=== PATIENT | male | born 1955 | race Caucasian/White ===

== ENCOUNTER 2021-08-27 09:46 | Inpatient (IN) | payer MEDICARE, OTHER ==
[~2021-08-27] VITALS: Ht 182.9 cm; Wt 90.7 kg
[2021-08-27] MEDS ORDERED: SUBOXONE (10:11)
[2021-08-27] MEDS ORDERED: ONDANSETRON 4 MG/2 ML VIAL IV ONE (10:30)
[2021-08-27] MEDS ORDERED: BENZONATATE 100 MG CAPSULE PO ONE (10:30)
[2021-08-27] MEDS ORDERED: MORPHINE SULFATE 2 MG/1 ML DISP.SYRIN IV ONE (10:30)
[2021-08-27 10:40] LABS: HEMATOCRIT 38.7 % (36.7-47.1); MEAN CORPUSCULAR HEMOGLOBIN 30.4 uug (23.8-33.4); PLATELET COUNT (AUTO) 207 K/uL (152-348)
[2021-08-27 10:45] LABS: CREATININE 1.5 mg/dL (0.6-1.3); POTASSIUM 3.5 mmol/L (3.5-5.1)
[2021-08-27] MEDS ORDERED: ONDANSETRON 4 MG/2 ML VIAL ONE (10:49)
[2021-08-27] MEDS ORDERED: BENZONATATE 100 MG CAPSULE ONE (10:49)
[2021-08-27] MEDS ORDERED: MORPHINE SULFATE 2 MG/1 ML DISP.SYRIN ONE (10:49)
[2021-08-27 10:59] LABS: BILIRUBIN,TOTAL 2.2 mg/dL (0.2-1.0); TOTAL PROTEIN, SERUM 7.8 g/dL (6.4-8.2)
--- NOTE | 2021-08-27 10:59 | NUR ---
PT IS IN ROOM #1B. DR COATES EVALUTED THE PT.
[2021-08-27] MEDS ORDERED: CEFTRIAXONE 1 G in IV DEXTROSE 5% 50 ML IV ONE (11:30)
[2021-08-27] MEDS ORDERED: AZITHROMYCIN IV 500 MG in IV DEXTROSE 5% 250 ML IV ONE (11:30)
[2021-08-27] MEDS ORDERED: IOHEXOL 350 100 ML INFUS..BTL ONE ×2 (11:51→11:52)
[2021-08-27] MEDS ORDERED: SWABABLE VALVE TRANSFER SET EA MC ONE (11:52)
[2021-08-27] MEDS ORDERED: CEFTRIAXONE /D5W 50ML IVPB **ER PYXIS IV ONE ×2 (11:57→20:38)
[2021-08-27] MEDS ORDERED: AZITHROMYCIN 500MG/ D5W 250ML IVPB **ER PYXIS ONLY IV ONE (11:58)
[2021-08-27] MEDS ORDERED: DEXAMETHASONE SOD PHOSPHATE 4 MG INJ IV ONE (14:00)
[2021-08-27] MEDS ORDERED: ENOXAPARIN SODIUM 40 MG/0.4 ML DISP.SYRIN SQ ONE ×2 (14:00→14:19)
[2021-08-27] MEDS ORDERED: PANTOPRAZOLE SODIUM 40 MG VIAL IV ONE (14:00)
[2021-08-27] MEDS ORDERED: DEXAMETHASONE SOD PHOSPHATE 10 MG INJ ONE (14:18)
[2021-08-27] MEDS ORDERED: PANTOPRAZOLE SODIUM 40 MG VIAL ONE (14:19)
[2021-08-27] MEDS ORDERED: BUPRENORPHINE HCL 2 MG TAB.SUBL SL ONE (18:00)
[2021-08-27] MEDS ORDERED: MAGNESIUM HYDROXIDE 30 ML LIQUID UDC PO PRN (18:45)
[2021-08-27] MEDS ORDERED: CEFTRIAXONE 1 G in IV DEXTROSE 5% 50 ML IV SCH ×2 (18:45→23:48)
[2021-08-27] MEDS ORDERED: ONDANSETRON 4 MG/2 ML VIAL IV PRN (18:45)
[2021-08-27] MEDS ORDERED: ACETAMINOPHEN 325 MG TABLET PO PRN (18:45)
[2021-08-27] MEDS ORDERED: HYDROCODONE/APAP 5-325MG TABLET PO PRN (18:45)
[2021-08-27] MEDS ORDERED: DOCUSATE SODIUM 250 MG CAPSULE PO SCH (21:00)
--- NOTE | 2021-08-27 21:14 | NUR ---
pt a/o denies sob or c/p pt is aware is is admitted to the hospital.
--- NOTE | 2021-08-27 23:04 | NUR ---
pt is moved to room 2a in er. attempted to give report to sandrine on 3rd floor, nurse is unavailable.
--- NOTE | 2021-08-27 23:44 | NUR ---
NOw told by Neelima GOMEZ that pt will go to room 322.
[2021-08-27] MEDS ORDERED: ALBUTEROL SULFATE 2.5 MG/3 ML NEBU NEB PRN (23:45)
--- NOTE | 2021-08-27 23:56 | NUR ---
pt transported to room 322 with all belongings Mercedes at bedside to receive pt.
[2021-08-28 00:18] VITALS: BP 114/62
--- NOTE | 2021-08-28 01:23 | NUR ---
Admitted pt to Tele with dx of CAP via frank accompanied by ER nurse Ameya. He is alert and oriented x4, able to make needs known, ambulatory and continent to B&B. He is on O2 at 3 LPM via NC saturating at 96%. IV line on RAC patent and intact. Admission process observed, belongings list filled up, and full body assessment done. Skin is intact. All needs attended. Call light placed within reach. Will continue to monitor.
[2021-08-28 04:35] VITALS: BP 101/47
[2021-08-28] MEDS: PANTOPRAZOLE SODIUM 40 MG TABLET.DR PO SCH (06:06)
--- NOTE | 2021-08-28 06:40 | NUR ---
Pt slept intermittently throughout the night. On O2 at 3 LPM via NC. Sinus bradycardia on tele. Due medication given on time and tolerated well. Urinal at bedside. All needs attended. Call light placed within reach. Frequent visual checks done. Will endorse to next shift.
[2021-08-28 07:53] LABS: HEMATOCRIT 35.4 % (36.7-47.1); MEAN CORPUSCULAR HEMOGLOBIN 30.1 uug (23.8-33.4); MEAN CORPUSCULAR VOLUME 88.3 fL (73.0-96.2); PLATELET COUNT (AUTO) 198 K/uL (152-348)
[2021-08-28 08:00] LABS: BILIRUBIN,TOTAL 0.8 mg/dL (0.2-1.0); CREATININE 1.1 mg/dL (0.6-1.3); MAGNESIUM 2.6 mg/dL (1.8-2.4); PHOSPHOROUS 3.1 mg/dL (2.5-4.9); POTASSIUM 4.1 mmol/L (3.5-5.1)
[2021-08-28 08:08] LABS: THYROID STIMULATING HORMONE 0.111 mIU/mL (0.358-3.740)
--- NOTE | 2021-08-28 08:54 | NUR ---
Pt Receive PT AAOX4 . On O2 at 3 LPM via NC. Sinus bradycardia on tele. Due medication given on time and tolerated well. Urinal at bedside. All needs attended. Call light placed within reach. Frequent visual checks done.PT requesting to speak to the DR he is asking for a medicine suboxone 8 mg will let the DR know
[2021-08-28] MEDS ORDERED: AZITHROMYCIN IV 250 MG in IV DEXTROSE 5% 250 ML IV SCH (09:00)
[2021-08-28] MEDS: ENOXAPARIN SODIUM 40 MG/0.4 ML DISP.SYRIN SQ SCH (10:52)
[2021-08-28] MEDS ORDERED: CEFTRIAXONE 1 G in IV DEXTROSE 5% 50 ML IV SCH (12:00)
[2021-08-28] MEDS: AZITHROMYCIN IV 500 MG in IV DEXTROSE 5% 250 ML IV SCH (12:28)
[2021-08-28] MEDS: ALBUTEROL SULFATE 2.5 MG/3 ML NEBU NEB SCH ×2 (16:09→21:31)
[2021-08-28] MEDS ORDERED: BUPR1FIL3 SL (16:36)
--- NOTE | 2021-08-28 16:45 | NUR ---
PT continue to request for the medicine Suboxone 8 mg he said his sister will bring the medicine left a massage to DR Chris richards if the sister will bring the medicine 1645 meds was approve with new order noted VS was taken B/P 103/59 ,tem 98.6 P 61 R 20 0 2 sat 96% with 02 3L via N/C PT is stable.
[2021-08-28] MEDS: BUPRENORPHINE SL SCH (16:55)
[2021-08-28] MEDS: NALOXONE SL SCH (16:55)
[2021-08-28] MEDS ORDERED: HYDROCODONE/APAP 5-325MG TABLET PO PRN (17:15)
--- NOTE | 2021-08-28 19:19 | NUR ---
PT continue AAO X4 medication Suboxone 8 mg sublingual given as order No sS/S of A/R noted VS B/P 96/51 HR 63 02 sat 95% with 3L o2 via N/C PT is stable.Will continue to monitor for safety and comfort
[2021-08-28 20:53] VITALS: BP 96/57
[2021-08-28] MEDS: CEFTRIAXONE 1 G in IV DEXTROSE 5% 50 ML IV SCH (21:10)
[2021-08-28] MEDS: ATORVASTATIN 10 MG TABLET PO SCH (21:10)
[2021-08-28] MEDS: DOCUSATE SODIUM 100 MG CAPSULE PO SCH (21:10)
[2021-08-28] MEDS: GUAIFENESIN/CODEINE 5 ML LIQUID UDC PO PRN (21:17)
[2021-08-29 00:45] VITALS: BP 91/50
[2021-08-29 04:42] VITALS: BP 126/54
[2021-08-29] MEDS: PANTOPRAZOLE SODIUM 40 MG TABLET.DR PO SCH (06:09)
[2021-08-29] MEDS: NALOXONE SL SCH (07:44)
[2021-08-29] MEDS: BUPRENORPHINE SL SCH (07:44)
[2021-08-29 07:45] LABS: HEMATOCRIT 34.6 % (36.7-47.1); MEAN CORPUSCULAR HEMOGLOBIN 29.7 uug (23.8-33.4); MEAN CORPUSCULAR VOLUME 87.6 fL (73.0-96.2); PLATELET COUNT (AUTO) 212 K/uL (152-348)
[2021-08-29 07:54] LABS: BILIRUBIN,TOTAL 0.5 mg/dL (0.2-1.0); CREATININE 1.3 mg/dL (0.6-1.3); MAGNESIUM 2.3 mg/dL (1.8-2.4); PHOSPHOROUS 3.4 mg/dL (2.5-4.9); POTASSIUM 2.9 mmol/L (3.5-5.1); TOTAL PROTEIN, SERUM 6.7 g/dL (6.4-8.2)
[2021-08-29] MEDS: ALBUTEROL SULFATE 2.5 MG/3 ML NEBU NEB SCH ×3 (08:17→22:32)
[2021-08-29] MEDS: ENOXAPARIN SODIUM 40 MG/0.4 ML DISP.SYRIN SQ SCH (08:18)
[2021-08-29 08:21] VITALS: BP 94/63
[2021-08-29] MEDS ORDERED: POTASSIUM CHLORIDE 20 MEQ TAB.PRT.SR PO ONE ×2 (10:30→12:30)
[2021-08-29] MEDS ORDERED: POTASSIUM CHLORIDE 50 ML IV SCH (10:30)
[2021-08-29] MEDS: AZITHROMYCIN IV 500 MG in IV DEXTROSE 5% 250 ML IV SCH (11:07)
[2021-08-29 13:13] VITALS: BP 91/49
[2021-08-29 16:44] VITALS: BP 91/56
[2021-08-29] MEDS: GUAIFENESIN/CODEINE 5 ML LIQUID UDC PO PRN (18:34)
[2021-08-29 20:00] VITALS: BP 129/54
[2021-08-29] MEDS: DOCUSATE SODIUM 100 MG CAPSULE PO SCH (20:04)
[2021-08-29] MEDS: ATORVASTATIN 10 MG TABLET PO SCH (20:04)
[2021-08-29] MEDS: CEFTRIAXONE 1 G in IV DEXTROSE 5% 50 ML IV SCH (20:06)
[2021-08-30 05:15] VITALS: BP 96/51
[2021-08-30] MEDS: PANTOPRAZOLE SODIUM 40 MG TABLET.DR PO SCH (06:07)
--- NOTE | 2021-08-30 08:00 | NUR ---
awake alert and oriented, denies of pain, no distress noted, very pleasant and cooperative, explained plan of care-verbalized understanding, safety measures in place, call light within reach
[2021-08-30 08:07] LABS: CREATININE 1.2 mg/dL (0.6-1.3); POTASSIUM 3.6 mmol/L (3.5-5.1)
[2021-08-30] MEDS: ALBUTEROL SULFATE 2.5 MG/3 ML NEBU NEB SCH ×3 (08:18→21:45)
[2021-08-30] MEDS: NALOXONE SL SCH (08:57)
[2021-08-30] MEDS: BUPRENORPHINE SL SCH (08:57)
[2021-08-30] MEDS: ENOXAPARIN SODIUM 40 MG/0.4 ML DISP.SYRIN SQ SCH (08:58)
[2021-08-30 12:00] VITALS: BP 95/55
[2021-08-30] MEDS: AZITHROMYCIN IV 500 MG in IV DEXTROSE 5% 250 ML IV SCH (12:50)
[2021-08-30 16:00] VITALS: BP 111/61
--- NOTE | 2021-08-30 18:59 | NUR ---
no distress noted, all needs attended and met, call light within reach
[2021-08-30] MEDS: DOCUSATE SODIUM 100 MG CAPSULE PO SCH (20:04)
[2021-08-30] MEDS: GUAIFENESIN/CODEINE 5 ML LIQUID UDC PO PRN (20:04)
[2021-08-30] MEDS: ATORVASTATIN 10 MG TABLET PO SCH (20:04)
[2021-08-30] MEDS: CEFTRIAXONE 1 G in IV DEXTROSE 5% 50 ML IV SCH (20:05)
[2021-08-31] MEDS: PANTOPRAZOLE SODIUM 40 MG TABLET.DR PO SCH (06:00)
[2021-08-31 06:54] LABS: HEMATOCRIT 36.8 % (36.7-47.1); MEAN CORPUSCULAR HEMOGLOBIN 29.6 uug (23.8-33.4); MEAN CORPUSCULAR VOLUME 89.3 fL (73.0-96.2); PLATELET COUNT (AUTO) 246 K/uL (152-348)
[2021-08-31 07:12] LABS: CREATININE 1.1 mg/dL (0.6-1.3); MAGNESIUM 2.5 mg/dL (1.8-2.4); PHOSPHOROUS 3.1 mg/dL (2.5-4.9); POTASSIUM 4.1 mmol/L (3.5-5.1)
[2021-08-31] MEDS: ALBUTEROL SULFATE 2.5 MG/3 ML NEBU NEB SCH ×2 (08:09→13:54)
[2021-08-31] MEDS: BUPRENORPHINE SL SCH (08:16)
[2021-08-31] MEDS: NALOXONE SL SCH (08:16)
[2021-08-31] MEDS: ENOXAPARIN SODIUM 40 MG/0.4 ML DISP.SYRIN SQ SCH (08:17)
[2021-08-31] MEDS ORDERED: AZIT250T PO (11:47)
[2021-08-31] MEDS ORDERED: GUAI5SYR4 PO (11:47)
[2021-08-31] MEDS ORDERED: ATOR10TA PO (11:47)
[2021-08-31 12:00] VITALS: BP 90/46
[2021-08-31] MEDS ORDERED: AZITHROMYCIN 250 MG TABLET PO SCH (12:00)
[2021-08-31 12:06] LABS: ALBUMIN 2.9 g/dL (2.9-4.4); ALPHA-1-GLOBULIN 0.3 g/dL (0.0-0.4); BETA GLOBULIN 0.9 g/dL (0.7-1.3); GAMMA GLOBULIN 0.7 g/dL (0.4-1.8); M-SPIKE Not Observed g/dL (Not Observed)
--- NOTE | 2021-08-31 15:00 | NUR ---
Discharge instructions given to patient. Gave ABX as ordered zithromax. Instructed pt to continue using his [employer] at home. Pt able to properly return demonstrate use of IS. Pt verbalized understanding. His Sister is picking up his MEdication from [facility] e prescription. IV taken out. PT to follow up with primary doctor within 1 week. PT prefer to follow up with PMD re vaccinations. Pt is in no acute distress upon discharge.
[2021-08-31] MEDS ORDERED: IV NS 1000 ML 1,000 ML IV PRN (17:00)
== END 2021-08-31 14:55 | disposition home or self-care (01) | DRG 193 ==
LOC: ER 09:46 → TELE3 18:51 → MEDSURG3 08-29 20:40
PROVIDERS: ADMIT Internal Medicine; ATTEND Internal Medicine
DX: J18.9 Pneumonia, unspecified organism (principal); N17.0 Acute kidney failure with tubular necrosis; E78.2 Mixed hyperlipidemia; E87.6 Hypokalemia; P59.9 Neonatal jaundice, unspecified; R59.0 Localized enlarged lymph nodes; R09.02 Hypoxemia; Z20.822 Contact with and (suspected) exposure to COVID-19; I10 Essential (primary) hypertension; D64.9 Anemia, unspecified; Z79.899 Other long term (current) drug therapy
CPT/HCPCS: 36415; 70030-TC; 71045; 71275; 83605; 83615; 83735; 83970; 84100; 84155; 84165; 84443; 85025; 86140; 87040; 87070; 87400; 93005; 94640; 97161; A4663; C9113; G0378; J0456; J0696; J1100; J1650; J2270; J2405; J7030; J7040; J7060; Q0144; Q9967; U0003

== ENCOUNTER 2022-04-05 16:47 | Emergency (ER) | payer MEDICARE, OTHER ==
[~2022-04-05 16:47] MED LIST: ATOR10TA PO; AZIT250T PO; BUPR1FIL3 SL; GUAI5SYR4 PO
--- NOTE | 2022-04-05 16:56 | NUR ---
Pt left W/O being triaged.
== END 2022-04-05 17:08 | disposition left against medical advice (07) ==
LOC: ER 16:49
DX: Z53.21 Procedure and treatment not carried out due to patient leaving prior to being seen by health care provider (principal)

== ENCOUNTER 2022-12-27 16:23 | Emergency (ER) | payer OTHER ==
--- NOTE | 2022-12-27 16:27 | NUR ---
Pt Left w/o being triaged.
== END 2022-12-27 16:29 | disposition home or self-care (01) ==
LOC: ER 16:23
DX: M25.551 Pain in right hip (principal); I10 Essential (primary) hypertension; Z79.2 Long term (current) use of antibiotics; Z79.899 Other long term (current) drug therapy; W18.39XA Other fall on same level, initial encounter; Y93.89 Activity, other specified; Y92.89 Other specified places as the place of occurrence of the external cause; Y99.8 Other external cause status
CPT/HCPCS: A4663

== ENCOUNTER 2023-01-04 15:16 | Emergency (ER) | payer OTHER ==
[~2023-01-04] VITALS: Ht 182.9 cm; Wt 88.5 kg
[2023-01-04 17:34] LABS: MEAN CORPUSCULAR HEMOGLOBIN 31.1 uug (23.8-33.4); MEAN CORPUSCULAR VOLUME 95.1 fL (73.0-96.2); PLATELET COUNT (AUTO) 199 K/uL (152-348)
--- NOTE | 2023-01-04 17:34 | NUR ---
Pt bolivar, pt walked out to nursing station and stated his sister is waiting for him outside and he needs to leave. spoke with the pt. Stressed follow up with pmd or return to ER as needed.
[2023-01-04 18:15] LABS: CREATININE 1.1 mg/dL (0.6-1.3); POTASSIUM 4.2 mmol/L (3.5-5.1)
[2023-01-04 18:21] LABS: BILIRUBIN,DIRECT 0.6 mg/dL (0.0-0.2); BILIRUBIN,TOTAL 3.2 mg/dL (0.2-1.0); TOTAL PROTEIN, SERUM 6.7 g/dL (6.4-8.2)
== END 2023-01-04 18:25 | disposition left against medical advice (07) ==
LOC: ER 15:16
DX: S70.11XA Contusion of right thigh, initial encounter (principal); S30.0XXA Contusion of lower back and pelvis, initial encounter; I10 Essential (primary) hypertension; Z79.2 Long term (current) use of antibiotics; Z79.899 Other long term (current) drug therapy; W01.0XXA Fall on same level from slipping, tripping and stumbling without subsequent striking against object, initial encounter; Y93.89 Activity, other specified; Y92.89 Other specified places as the place of occurrence of the external cause; Y99.8 Other external cause status
CPT/HCPCS: 36415; 85025; A4663

== ENCOUNTER 2024-06-02 19:53 | Emergency (ER) | payer OTHER, MEDICAID ==
[~2024-06-02] VITALS: Ht 182.9 cm; Wt 97.1 kg
[2024-06-02 20:01] VITALS: O2SAT 97
[2024-06-02] MEDS ORDERED: ACETAMINOPHEN 500 MG TABLET ONE (21:26)
[2024-06-02] MEDS ORDERED: AMOXICILLIN-CLAVUL 500-125MG TABLET ONE (21:27)
[2024-06-02] MEDS ORDERED: TDAP DIPH,PERTUSS,TET VAC/PF 0.5 ML DISP.SYRIN IM ONE (21:27)
[2024-06-02] MEDS: AMOXICILLIN-CLAVUL 500-125MG TABLET PO ONE (21:36)
[2024-06-02] MEDS: ACETAMINOPHEN 500 MG TABLET PO ONE (21:36)
[2024-06-02] MEDS: TDAP DIPH,PERTUSS,TET VAC/PF 0.5 ML DISP.SYRIN IM ONE (21:36)
== END 2024-06-02 23:46 | disposition short-term general hospital (02) ==
LOC: ER 19:54
DX: S01.531A Puncture wound without foreign body of lip, initial encounter (principal); I48.91 Unspecified atrial fibrillation; Z79.899 Other long term (current) drug therapy; W54.0XXA Bitten by dog, initial encounter; Y93.89 Activity, other specified; Y92.89 Other specified places as the place of occurrence of the external cause; Y99.8 Other external cause status
CPT/HCPCS: 90715; A4606; A4663; A9150